=== PATIENT | male | born 1980 | race African-American/Black ===

== ENCOUNTER 2025-06-20 14:04 | Outpatient (CLI) | payer OTHER | END 2025-06-20 14:05 | disposition home or self-care (01) | LOC: CSHLAB 14:04 | PROVIDERS: ATTEND Surgery | DX: Z01.810 Encounter for preprocedural cardiovascular examination (principal) | CPT/HCPCS: 93005; 93010 ==

== ENCOUNTER 2025-06-21 05:24 | Day surgery (SDC) | payer OTHER ==
[2025-06-17 13:03] VITALS: BMI 20.1
[2025-06-21] MEDS ORDERED: Bupivacaine HCl 0.5%/Epinephrine 1:200,000/PF 30 ml Vial ONE (06:27)
[2025-06-21] MEDS ORDERED: Ondansetron PF 4 MG/2 ML Vial ONE (06:35)
[2025-06-21] MEDS ORDERED: Lidocaine 1% (PF) 30 ML VIAL ONE (06:35)
[2025-06-21] MEDS ORDERED: Ketorolac Tromethamine 30 MG (1 mL) VIAL ONE (06:35)
[2025-06-21] MEDS ORDERED: PROPOFOL 40 ML ONE (06:35)
[2025-06-21] MEDS ORDERED: Lidocaine 2% PF 100 mg/5 ml Syringe ONE (06:37)
[2025-06-21] MEDS ORDERED: Rocuronium Bromide 10 MG/ML (10ML VIAL) ONE (06:47)
[2025-06-21] MEDS ORDERED: CEFAZOLIN 2 GM VIAL ONE (06:55)
== END 2025-06-21 09:52 | disposition home or self-care (01) ==
LOC: CSHSDC 05:24
PROVIDERS: ATTEND Surgery
PROC: 0JH60WZ Insertion of Totally Implantable Vascular Access Device into Chest Subcutaneous Tissue and Fascia, Open Approach (ICD-10-PCS; principal; 2025-06-21)
DX: C05.1 Malignant neoplasm of soft palate (principal); F17.210 Nicotine dependence, cigarettes, uncomplicated
CPT/HCPCS: 71045; A6258; B4087; C1788; J1100; J1642; J1885; J2003; J2250; J2405; J2704; J3010